=== PATIENT | female | born 1945 | race Caucasian/White ===

== ENCOUNTER → 2024-02-02 08:20 | Outpatient (REF) | payer OTHER, SELFPAY | LOC: RST 08:20 | PROVIDERS: ATTENDING PHYSICIAN Nurse Practitioner Adult Health | DX: R13.10 Dysphagia, unspecified (principal) | CPT/HCPCS: 74230; 92611 ==

== ENCOUNTER → 2024-02-04 08:04 | Outpatient (REF) | payer OTHER, SELFPAY | LOC: RAD 08:04 | PROVIDERS: ATTENDING PHYSICIAN Nurse Practitioner Adult Health | DX: R91.1 Solitary pulmonary nodule (principal) | CPT/HCPCS: 71260; Q9967 ==

== ENCOUNTER → 2024-02-29 10:52 | Outpatient (REF) | payer OTHER, SELFPAY | LOC: WDC 10:52 | PROVIDERS: ATTENDING PHYSICIAN Nurse Practitioner Adult Health | DX: Z12.31 Encounter for screening mammogram for malignant neoplasm of breast (principal); Z78.0 Asymptomatic menopausal state; M81.0 Age-related osteoporosis without current pathological fracture | CPT/HCPCS: 77063; 77067; 77080 ==

== ENCOUNTER 2024-05-09 07:37 | Inpatient (IN) | payer OTHER, SELFPAY ==
[2024-04-19 14:36] VITALS: BMI 20.9
[2024-05-09] VITALS (12 sets, daily range): BP systolic 122–164; BP diastolic 63–84; BMI 20.9
[2024-05-09] MEDS: NORMOSOL-R/PLASMALYTE-A 1000 IV ×2 (08:22→13:41)
--- NOTE | 2024-05-09 12:37 | W.PN.UPDATE ---
Update Note
Progress Note Update
KUB shows NGT in stomach. wire removed, will begin using tube for feeds and meds.
--- NOTE | 2024-05-09 12:45 | PTCARENOTE ---
Pt received from the PACU via bed. Transport was w/o incident. Pt is AAOx3, Pt denies nausea, and reports mild tenderness to surgical site left neck area. Pt declines any pain med. at this time. VSS, Pt is afebrile. Resp. are easy, currently on 3L
02. Pulse ox is 99% on the 3L. Will Titrate 02 as able to keep Pulse ox equal to or greater than 92%. Pt instructed on plan of care. Pt verbalized understanding of instructions. Call han is within reach.
[2024-05-09] MEDS: TORADOL 15 MG IV (18:05)
[2024-05-09] MEDS: ANCEF 2.5 MG IV (18:11)
[2024-05-09] MEDS: DILANTIN ORAL SUSP 100 MG TUBE (21:07)
[2024-05-10] MEDS: ANCEF 2.5 MG IV ×2 (00:09→10:29)
[2024-05-10] MEDS: NORMOSOL-R/PLASMALYTE-A 1000 IV (00:09)
[2024-05-10 03:30] VITALS: BP 113/50
[2024-05-10 07:10] VITALS: BP 130/58
--- NOTE | 2024-05-10 08:07 | W.PN.ENT ---
Today's Communication
-
POD #1 cricopharyngeal myotomy, stable postop
await esophagram today
if no leak will begin po's
once tolerating po's will remove NGT and dc to home
Impression / Plan
-
POD #1 cricopharyngeal myotomy, stable postop
await esophagram today
if no leak will begin po's
once tolerating po's will remove NGT and dc to home
Subjective Data
-
c/o some pain in L neck, toradol helped yesterday, didn't take anything yet today.
no dyspnea, no nausea, tolerating tube feeds.
Objective Data
-
Vital Signs
Temp Pulse Resp BP Pulse Ox
98.5 F 74 14 130/58 95
05/10/24 07:10 05/10/24 07:10 05/10/24 07:10 05/10/24 07:10 05/10/24 07:10
Intake & Output
05/09/24 05/10/24 05/11/24
06:59 06:59 06:59
Intake:
IV fluids (Total) 1959
Normosol 300 / 300
Tube feeding 340 / 340
Feeding tube flush amount 350 / 350
Output:
Urine, Voided 500 / 500
Other:
Number of approximated MODERATE 2
amounts of urine
Number of approximated LARGE 3
amounts of urine
Physical Exam
-
A&O, ambulating well
no hoarseness, stridor, or drool
neck incision c/d/i, drain in place, minimal serosanguinous dc.
[2024-05-10] MEDS: DILANTIN ORAL SUSP 100 MG TUBE (10:26)
[2024-05-10 11:05] VITALS: BP 134/70
--- NOTE | 2024-05-10 12:18 | CM ---
Met with pt at bedside
Pt reports she lives with her son in a 3 story home; 7 steps to enter, 13 steps to 2nd fl. + 1/2 bath on FF
Independent at baseline, no device with ambulation, drives
DME - single point cane
SNF/HH - denies past hx
Has ride at discharge
PCP - Natalia Zhang
Pharm - [facility]
Plan - anticipate home no needs
[2024-05-10] MEDS: NORMOSOL-R/PLASMALYTE-A IV (13:34)
--- NOTE | 2024-05-10 15:04 | W.PN.UPDATE ---
Update Note
Progress Note Update
esophagram negative for leak, zenker's resolved, bolus passes much easier
Then able to drink plentiful clear liquids, soup w/o pain or swelling
NGT and drain dc'ed
dc to home
pt instructed to call for sudden increase in pain or swelling, fever, or trouble swallowing
keep neck dry until tomorrow
gauze at drain site can be removed tomorrow
== END 2024-05-10 15:42 | disposition home or self-care (01) | DRG 327 ==
LOC: 2 SOUTH 07:37
PROVIDERS: Radiology Diagnostic Radiology; ADMITTING PHYSICIAN Otolaryngology; FAMILY PHYSICIAN Nurse Practitioner Adult Health
PROC: 0CJS8ZZ Inspection of Larynx, Via Natural or Artificial Opening Endoscopic (ICD-10-PCS; 2024-05-09)
PROC: 0DH67UZ Insertion of Feeding Device into Stomach, Via Natural or Artificial Opening (ICD-10-PCS; 2024-05-09)
PROC: 0K840ZZ Division of Tongue, Palate, Pharynx Muscle, Open Approach (ICD-10-PCS; 2024-05-09)
PROC: 0DQ50ZZ Repair Esophagus, Open Approach (ICD-10-PCS; 2024-05-09)
DX: K22.0 Achalasia of cardia (principal); K91.71 Accidental puncture and laceration of a digestive system organ or structure during a digestive system procedure; K22.5 Diverticulum of esophagus, acquired; K22.2 Esophageal obstruction; R13.19 Other dysphagia; Y65.8 Other specified misadventures during surgical and medical care; Y73.3 Surgical instruments, materials and gastroenterology and urology devices (including sutures) associated with adverse incidents; Y92.234 Operating room of hospital as the place of occurrence of the external cause; Z87.01 Personal history of pneumonia (recurrent); Z91.041 Radiographic dye allergy status
CPT/HCPCS: 36415; 74018; 74220; 93005

== ENCOUNTER → 2024-09-12 11:55 | Outpatient (REF) | payer OTHER, SELFPAY | LOC: REG 11:55 | PROVIDERS: ATTENDING PHYSICIAN Nurse Practitioner Adult Health | DX: J18.9 Pneumonia, unspecified organism (principal); Z86.711 Personal history of pulmonary embolism | CPT/HCPCS: 71046 ==